=== PATIENT | male | born 1935 | race Asian ===

== ENCOUNTER 2017-11-19 16:21 | Emergency (ER) | payer OTHER, MEDICAID ==
[~2017-11-19] VITALS: Ht 170.2 cm; Wt 54.4 kg
--- NOTE | 2017-11-19 16:40 | NUR ---
BB RA 39 3 HOURS ON DIALYSIS C/O CP GIVEN NITRO SPRAY NO RELIEF. SEEN BY MD FOR EVAL. NOTED TACHY TO 150S. LEFT ARM WITH FISTULA PLACEMENT. SAFETY AND COMFORT MEASURES PROVIDED. WILL MONITOR.
--- NOTE | 2017-11-19 16:45 | NUR ---
IV ACCCESS STARTED. BLOOD DRAWN. MEDICAted as ORDERED. EKG AT BS.
[2017-11-19] MEDS ORDERED: MORPHINE SULFATE INJ 4 MG/ML DISP.SYRIN ONE ×2 (16:46→17:24)
[2017-11-19] MEDS ORDERED: NITROGLYCERIN 0.4 MG/TAB BOTTLE ONE (16:50)
--- NOTE | 2017-11-19 16:50 | NUR ---
PT PLACED ON PACER PADS. NOTED HR AT 160S.
[2017-11-19 16:51] LABS: BASOPHILS # (AUTO) 0.3 /CMM (0.0-0.2); BASOPHILS % (AUTO) 2.7 % (0.0-2.0); EOSINOPHILS # (AUTO) 0.2 /CMM (0.0-0.7); EOSINOPHILS % (AUTO) 2.2 % (0.0-6.0); HEMATOCRIT 44 % (39-51); HEMOGLOBIN 15.1 g/dL (13.5-17.5); LYMPHOCYTES # (AUTO) 1.4 /CMM (0.8-4.8); LYMPHOCYTES % (AUTO) 13.9 % (20.0-44.0); MEAN CORPUSCULAR HEMOGLOBIN 31 PG (26.0-33.0); MEAN CORPUSCULAR HGB CONC 35 g/dl (31.0-36.0); MEAN CORPUSCULAR VOLUME 90 fL (80-96); MONOCYTES # (AUTO) 0.9 /CMM (0.1-1.30); MONOCYTES % (AUTO) 9.3 % (2.0-12.0); NEUTROPHILS # (AUTO) 7.2 /CMM (1.8-8.9); NEUTROPHILS % (AUTO) 71.9 % (43.0-81.0); PLATELET COUNT (AUTO) 233 /CMM (150-450); RDW COEFFICIENT OF VARIATION 13.7 (11.5-15.0); RED BLOOD CELL COUNT(AUTO) 4.82 MIL/uL (4.5-6.0)
[2017-11-19 17:00] LABS: CALCIUM, SERUM 9.4 mg/dL (8.5-10.1); CARBON DIOXIDE 28 mmol/L (21-32); CHLORIDE 99 mmol/L (98-107); GLUCOSE 130 mg/dL (74-106); SODIUM SERUM 135 mmol/L (136-145); UREA NITROGEN, BLOOD 22 mg/dL (7-18)
[2017-11-19] MEDS ORDERED: NITROGLYCERIN 0.4 MG/TAB BOTTLE SL ONE (17:00)
[2017-11-19] MEDS ORDERED: MORPHINE SULFATE INJ 2 MG/ML DISP.SYRIN IV ONE ×2 (17:00→19:30)
[2017-11-19] MEDS ORDERED: METOPROLOL TARTRATE INJ 5 MG/5 ML AMPUL IV ONE (17:00)
[2017-11-19 17:04] LABS: INR 0.93 (0.85-1.15)
[2017-11-19] MEDS ORDERED: ADENOSINE 6 MG/2 ML VIAL ONE (17:05)
[2017-11-19 17:09] LABS: TROPONIN I 0.048 ng/mL (0.00-0.056)
[2017-11-19] MEDS ORDERED: ONDANSETRON HCL/PF 4 MG/2 ML VIAL ONE (17:24)
--- NOTE | 2017-11-19 17:29 | NUR ---
CALLED [facility], PRESENTED PT, AWAITING CALL BACK FROM [facility]
--- NOTE | 2017-11-19 17:30 | NUR ---
RECEIVED VERBAL ORDERS FOR MORPHINE 4MG AND ZOFRAN 4MG IVP. ORDERS CARRIED OUT.
--- NOTE | 2017-11-19 18:12 | NUR ---
RECEIVED CALL FROM [facility], PT ACCEPTED TO [facility] BY , NUMBER FOR REPORT IS [phone]. 1 HOUR ETA.
--- NOTE | 2017-11-19 18:20 | NUR ---
REPORT GIVEN TO MADELYN SOSA FOR [facility].
[2017-11-19 18:40] VITALS: BP 150/74
--- NOTE | 2017-11-19 19:12 | NUR ---
REPORT GIVEN TO ANN SOSA OF [facility] TEAM FOR TRANSPORT.
[2017-11-19] MEDS ORDERED: ONDANSETRON HCL/PF 4 MG/2 ML VIAL IV ONE (19:30)
[2017-11-19] MEDS ORDERED: ADENOSINE 6 MG/2 ML VIAL IVP ONE ×2 (19:30)
== END 2017-11-19 19:29 | disposition short-term general hospital (02) ==
LOC: ER 16:22 → EDSEX 16:22 → ER 19:29
DX: I47.1 Supraventricular tachycardia (principal); R07.89 Other chest pain; I12.0 Hypertensive chronic kidney disease with stage 5 chronic kidney disease or end stage renal disease; I25.10 Atherosclerotic heart disease of native coronary artery without angina pectoris; I42.1 Obstructive hypertrophic cardiomyopathy; N18.6 End stage renal disease; Z99.2 Dependence on renal dialysis; Z98.890 Other specified postprocedural states
CPT/HCPCS: 36415; 71045; 80048; 84484; 85025; 85730; 93005; 96374; 96375; 96376; 99291; A4606; J0153; J2270 ×2; J2405; J7040; Z7610